=== PATIENT | female | born 1945 | race Asian ===

== ENCOUNTER 2017-10-10 01:47 | Inpatient (IN) | payer MEDICARE, OTHER ==
[~2017-10-10] VITALS: Ht 149.9 cm; Wt 93.0 kg
[~2017-10-10 01:47] MED LIST: ASPI81CH43 GT; DOCU50CA2 OR; FEXO-39 OR; GEMF600T3 OR; GLIP-116 OR; METF-372 OR; SIMV-8 OR; SITA50TA OR; TELM40TA6 OR
[2017-10-10] MEDS ORDERED: cloNIDine HCL 0.1 MG TAB ONE (02:05)
[2017-10-10] MEDS ORDERED: cloNIDine HCL 0.1 MG TAB PO ONE (02:15)
[2017-10-10 03:52] LABS: Basophils # (auto) 0.1 uL; Eosinophils # (auto) 0.2 uL; Hemoglobin 9.6 g/dL (12.2-16.2); Lymphocytes # (auto) 1.6 uL; Monocytes # (auto) 0.6 uL; Red Blood Cells 3.67 10^6/uL (4.0-5.20)
[2017-10-10 03:54] LABS: Eosinophils % (auto) 2.6 % (0.0-7.0); Hematocrit 29.2 % (36.0-46.0); Mean Corpuscular Hemoglobin 26.1 pg (28.0-32.0); Mean Corpuscular Hgb Conc. 32.8 g/dL (32.0-36.0); Mean Corpuscular Volume 79.4 fL (80.0-100.0); Monocytes % (auto) 7.3 % (0.0-12.0); Neutrophils # (auto) 6.3 uL; Neutrophils % (auto) 71.1 % (37.0-80.0); Platelet Count (auto) 235 10^3/uL (140-450); Red Cell Distribution Width 16.4 % (11.8-14.3); White Blood Cell 8.9 10^3/uL (4.4-10.8)
[2017-10-10 04:21] LABS: BUN/Creatinine Ratio 7.9
[2017-10-10 04:22] LABS: Albumin 2.8 g/dL (3.4-5.0); Bilirubin, Total 0.4 mg/dL (0.2-1.0); Calcium 8.2 mg/dL (8.5-10.1); Magnesium 2.9 mg/dL (1.6-2.6); Total Protein 7.6 g/dL (6.4-8.2)
[2017-10-10] MEDS ORDERED: FUROSEMIDE 40 MG/4 ML VIAL IV ONE (05:15)
[2017-10-10] MEDS ORDERED: NITROGLYCERIN 0.4 MG SL TAB SL PRN (06:30)
[2017-10-10] MEDS ORDERED: DEXTROSE (50%) 50ML SYRG IV PRN (06:30)
[2017-10-10] MEDS ORDERED: ACETAMINOPHEN 325 MG TAB PO PRN (06:30)
[2017-10-10] MEDS ORDERED: TEMAZEPAM 15 MG CAP PO PRN (06:30)
[2017-10-10] MEDS ORDERED: HYDROcodone-ACET 5/325MG TAB PO PRN (06:30)
[2017-10-10] MEDS ORDERED: ONDANSETRON HCL 4 MG/2 ML VIAL IV PRN (06:30)
[2017-10-10] MEDS ORDERED: MORPHINE SULF(PF) 0.5MG/ML 10ML VIAL IV PRN (06:30)
[2017-10-10] MEDS: ENALAPRILAT 1.25 MG/ML-1ML VIAL IV ONE ×2 (07:21→07:55)
[2017-10-10] MEDS: ASPirin 81 mg TAB PO SCH (09:58)
[2017-10-10] MEDS: PANTOPRAZOLE 40 MG TAB PO SCH (09:58)
[2017-10-10] MEDS ORDERED: ENALAPRIL MALEATE 2.5 MG TAB PO SCH (10:00)
[2017-10-10] MEDS ORDERED: HCTZ 25 MG TAB PO SCH (10:00)
[2017-10-10] MEDS ORDERED: GEMFIBROZIL 600 MG TAB PO SCH ×3 (10:00→22:00)
[2017-10-10] MEDS: ACCU-CHEK COMFORT CURVE STRIP VI SCH ×3 (11:49→23:42)
[2017-10-10] MEDS: InsuLIN REG 1unit/0.01ml Soln (100units/ml) SC SCH ×3 (11:51→23:42)
[2017-10-10 13:30] VITALS: BP 156/98
[2017-10-10 15:19] VITALS: BP 156/98
[2017-10-10] MEDS ORDERED: EPOETIN ALFA 10,000 UNIT/1 ML VIAL IV ONE (15:30)
[2017-10-10 16:47] VITALS: BP 178/71
[2017-10-10] MEDS ORDERED: ENALAPRIL MALEATE 2.5 MG TAB PO ONE (18:15)
[2017-10-10] MEDS: glipiZIDE 5 MG TAB PO SCH (18:48)
[2017-10-10] MEDS: cloNIDine HCL 0.1 MG TAB PO PRN (21:42)
[2017-10-10 21:47] VITALS: BP 129/57
[2017-10-10 22:00] VITALS: BP 164/76
[2017-10-11 04:59] VITALS: BP 169/71
[2017-10-11] MEDS: cloNIDine HCL 0.1 MG TAB PO PRN ×2 (05:47→22:04)
[2017-10-11] MEDS: ACCU-CHEK COMFORT CURVE STRIP VI SCH ×3 (05:48→17:38)
[2017-10-11] MEDS: InsuLIN REG 1unit/0.01ml Soln (100units/ml) SC SCH ×3 (05:50→17:38)
[2017-10-11] MEDS: glipiZIDE 5 MG TAB PO SCH ×2 (06:42→17:38)
[2017-10-11 08:24] LABS: Basophils # (auto) 0.1 uL; Eosinophils # (auto) 0.1 uL; Eosinophils % (auto) 1.7 % (0.0-7.0); Hematocrit 31.5 % (36.0-46.0); Hemoglobin 10.1 g/dL (12.2-16.2); Lymphocytes # (auto) 1.2 uL; Lymphocytes % (auto) 13.4 % (10.0-50.0); Mean Corpuscular Hemoglobin 25.6 pg (28.0-32.0); Mean Corpuscular Volume 79.8 fL (80.0-100.0); Monocytes # (auto) 0.6 uL; Monocytes % (auto) 6.6 % (0.0-12.0); Neutrophils # (auto) 6.7 uL; Neutrophils % (auto) 77.3 % (37.0-80.0); Platelet Count (auto) 244 10^3/uL (140-450); Red Blood Cells 3.95 10^6/uL (4.0-5.20); Red Cell Distribution Width 16.5 % (11.8-14.3); White Blood Cell 8.6 10^3/uL (4.4-10.8)
[2017-10-11 08:53] LABS: Albumin 3.3 g/dL (3.4-5.0); BUN/Creatinine Ratio 6.6; Bilirubin, Total 0.5 mg/dL (0.2-1.0); Calcium 8.2 mg/dL (8.5-10.1); Potassium 3.9 mmol/L (3.5-5.1); Total Protein 8.1 g/dL (6.4-8.2)
[2017-10-11 09:00] VITALS: BP 127/63
[2017-10-11] MEDS: PANTOPRAZOLE 40 MG TAB PO SCH (10:09)
[2017-10-11] MEDS: ASPirin 81 mg TAB PO SCH (10:09)
[2017-10-11] MEDS: ENALAPRIL MALEATE 10 MG TAB PO SCH (10:10)
[2017-10-11 10:55] LABS: Urine Bacteria MANY /hpf (None Seen); Urine Blood TRACE /uL (Negative); Urine Mucus FEW (None Seen); Urine Specific Gravity 1.009 (1.001-1.035); Urine WBC 7 /hpf (0 - 5)
[2017-10-11 13:00] VITALS: BP 151/60
[2017-10-11 17:00] VITALS: BP 147/63
[2017-10-11 22:41] VITALS: BP 163/72
[2017-10-12 04:49] VITALS: BP 154/76
[2017-10-12] MEDS: InsuLIN REG 1unit/0.01ml Soln (100units/ml) SC SCH ×4 (06:00→17:13)
[2017-10-12] MEDS: ACCU-CHEK COMFORT CURVE STRIP VI SCH ×4 (06:17→17:13)
[2017-10-12] MEDS: glipiZIDE 5 MG TAB PO SCH ×2 (06:17→17:14)
[2017-10-12 09:00] VITALS: BP 150/60
[2017-10-12] MEDS: ENALAPRIL MALEATE 10 MG TAB PO SCH (09:29)
[2017-10-12] MEDS: PANTOPRAZOLE 40 MG TAB PO SCH (09:29)
[2017-10-12] MEDS: ASPirin 81 mg TAB PO SCH (09:29)
[2017-10-12 13:00] VITALS: BP 156/71
[2017-10-12] MEDS ORDERED: FUROSEMIDE 20 MG TAB PO ONE (15:30)
[2017-10-12 17:00] VITALS: BP 160/69
[2017-10-12 22:04] VITALS: BP 180/65
[2017-10-13 05:10] VITALS: BP 147/59
[2017-10-13] MEDS: InsuLIN REG 1unit/0.01ml Soln (100units/ml) SC SCH ×4 (06:00→18:00)
[2017-10-13] MEDS: glipiZIDE 5 MG TAB PO SCH ×2 (06:04→18:00)
[2017-10-13] MEDS: ACCU-CHEK COMFORT CURVE STRIP VI SCH ×4 (06:05→18:14)
[2017-10-13 07:24] LABS: Basophils # (auto) 0.1 uL; Eosinophils # (auto) 0.2 uL; Monocytes # (auto) 0.8 uL; Red Cell Distribution Width 16.3 % (11.8-14.3)
[2017-10-13 07:30] LABS: Basophils % (auto) 0.8 % (0.0-2.0); Eosinophils % (auto) 1.8 % (0.0-7.0); Hematocrit 30.5 % (36.0-46.0); Lymphocytes # (auto) 2.5 uL; Lymphocytes % (auto) 22.5 % (10.0-50.0); Mean Corpuscular Hemoglobin 25.7 pg (28.0-32.0); Mean Corpuscular Hgb Conc. 32.7 g/dL (32.0-36.0); Mean Corpuscular Volume 78.7 fL (80.0-100.0); Monocytes % (auto) 6.9 % (0.0-12.0); Neutrophils # (auto) 7.6 uL; Platelet Count (auto) 228 10^3/uL (140-450); Red Blood Cells 3.87 10^6/uL (4.0-5.20); White Blood Cell 11.2 10^3/uL (4.4-10.8)
[2017-10-13] MEDS ORDERED: ADENOSINE 78 MG in GIVE UN-DILUTED 0 ML IV STA (08:19)
[2017-10-13 08:32] VITALS: BP 167/78
[2017-10-13] MEDS: cloNIDine HCL 0.1 MG TAB PO PRN (09:07)
[2017-10-13] MEDS: ENALAPRIL MALEATE 10 MG TAB PO SCH (10:00)
[2017-10-13] MEDS: ASPirin 81 mg TAB PO SCH (10:00)
[2017-10-13] MEDS ORDERED: FUROSEMIDE 20 MG TAB PO SCH (10:00)
[2017-10-13] MEDS: PANTOPRAZOLE 40 MG TAB PO SCH (10:00)
[2017-10-13 12:11] VITALS: BP 157/57
[2017-10-13] MEDS ORDERED: FURO80TA PO (13:45)
[2017-10-13] MEDS ORDERED: EPOETIN ALFA 10,000 UNIT/1 ML VIAL IV ONE (16:30)
[2017-10-13 17:13] VITALS: BP 161/62
[2017-10-13 18:15] VITALS: BP 143/58
== END 2017-10-13 19:14 | disposition home or self-care (01) | DRG 291 ==
LOC: ER 01:59 → TELE 02:00 → TELE-CENTR 13:16
PROVIDERS: ADMIT Nurse Practitioner; ATTEND Internal Medicine
PROC: 5A1D70Z Performance of Urinary Filtration, Intermittent, Less than 6 Hours Per Day (ICD-10-PCS; principal; 2017-10-10)
PROC: 5A1D70Z Performance of Urinary Filtration, Intermittent, Less than 6 Hours Per Day (ICD-10-PCS; 2017-10-13)
DX: I13.2 Hypertensive heart and chronic kidney disease with heart failure and with stage 5 chronic kidney disease, or end stage renal disease (principal); I50.43 Acute on chronic combined systolic (congestive) and diastolic (congestive) heart failure; N18.6 End stage renal disease; D63.1 Anemia in chronic kidney disease; E11.22 Type 2 diabetes mellitus with diabetic chronic kidney disease; E78.5 Hyperlipidemia, unspecified; E83.41 Hypermagnesemia; R74.8 Abnormal levels of other serum enzymes; W18.39XA Other fall on same level, initial encounter; E78.00 Pure hypercholesterolemia, unspecified; I08.0 Rheumatic disorders of both mitral and aortic valves; G47.00 Insomnia, unspecified; I70.8 Atherosclerosis of other arteries; I50.82 Biventricular heart failure; Z99.2 Dependence on renal dialysis; Y93.89 Activity, other specified; Y92.89 Other specified places as the place of occurrence of the external cause; Y99.8 Other external cause status; Z79.899 Other long term (current) drug therapy; Z98.51 Tubal ligation status; Z71.3 Dietary counseling and surveillance
CPT/HCPCS: 36415; 71045; 78452; 80053; 81001; 82962; 83735; 83880; 84132; 84484; 85025; 87081; 90935; 93005; 93017; 93306; 96374; 96375; J0153; J0885; J1815